=== PATIENT | female | born 1975 | race Caucasian/White ===

== ENCOUNTER 2016-11-26 16:34 | Emergency (ER) | payer MEDICAID ==
[~2016-11-26] VITALS: Ht 182.9 cm; Wt 93.0 kg
[~2016-11-26 16:34] MED LIST: GEOD80CA PO; IBUP-232 PO; NIAC500T5 PO; TRIH5TAB2 PO
[2016-11-26 16:46] VITALS: BP 133/83; PULSE 91; RESP 16; TEMP 98.1; O2SAT 99
[2016-11-26] MEDS ORDERED: ZIPR20 PO (17:00)
[2016-11-26] MEDS ORDERED: TRIH5TAB2 PO (17:00)
[2016-11-26] MEDS ORDERED: BUPR150T3 PO (17:00)
--- NOTE | 2016-11-26 17:30 | PD ---
HPI Chief Complaint: Musculoskeletal Complaint Time Seen by Provider: 17:29 Travel History International Travel<30 days: No Contact w/Intl Traveler<30days: No Traveled to known affect area: No History of Present Illness HPI 41-year-old right-hand dominant female presents to the ED for evaluation of 9/ 10 left shoulder pain. Onset this morning after she sat up in bed and reached for the alarm clock. She describes the pain as sharp, worsened by attempted range of motion. States she was able to go to work today and perform her duties of typing and writing. She states that by the end of the day she was in "terrible" pain. She denies numbness, tingling, muscular weakness of the extremity. She denies previous injury or known recent trauma. She treated with ibuprofen with no improvement of symptoms. PFSH Past Medical History Bipolar Disorder: Yes Anxiety: Yes Depression: Yes Cardiovascular Problems: No Diminished Hearing: No Endocrine: No Gastrointestinal Disorders: Yes GERD: Yes Genitourinary: Yes (urinary frequency since ) Immune Disorder: No Musculoskeletal: Yes (scoliosis) Neurologic: Yes (states has episodes where she has tunnel vision) Psychiatric: Yes Immunizations Current: Yes Pneumonia: Yes Tetanus Vaccination: > 5 Years Influenza Vaccination: No ?: Not : 3 Para: 2 Miscarriage: 1 Tubal Ligation: Yes Past Surgical History Section: Yes (2006 AND 2009) Gynecologic Surgery: Yes (ablation) Hysterectomy: Yes Oral Surgery: Yes (wisdom teeth-RIGHT UPPER AND LOWER 1989) Other Surgery: Yes Social History Alcohol Use: No Tobacco Use: Yes (1 PPD) Substance Use: No (H/O cocaine abuse) Allergies-Medications (Allergen,Severity, Reaction): Coded Allergies: Alcohol (Verified Allergy, Severe, HIVES, ITCHING, 11/26/16) Amoxicillin (Verified Allergy, Severe, Hives, 11/26/16) Penicillin (Verified Allergy, Severe, RASH, 11/26/16) Uncoded Allergies: Pt states allergic to all cillan drugs (Adverse Reaction, Intermediate, RASH, ITCHING, 11/26/16) . Reported Meds & Prescriptions Reported Meds & Active Scripts Active Robaxin (Methocarbamol) 500 Mg Tab 1,000 Mg PO TID Lortab (Hydrocodone-Acetaminophen) 5-325 Mg Tab 1 Tab PO Q6H PRN Ibuprofen 800 Mg Tab 800 Mg PO Q8H PRN Reported Bupropion HCl ER 24 HR (Bupropion HCl) 150 Mg Tab 150 Mg PO DAILY Trihexyphenidyl (Trihexyphenidyl HCl) 5 Mg Tab 5 Mg PO HS Geodon (Ziprasidone) 20 Mg Cap 20 Mg PO HS Review of Systems Except as stated in HPI: all other systems reviewed are Neg Physical Exam Narrative GENERAL: Well-nourished, well-developed nontoxic appearing white female in no acute distress.. SKIN: Focused skin assessment warm/dry. HEAD: Normocephalic. EYES: No scleral icterus. No injection or drainage. NECK: Supple, trachea midline. No JVD or lymphadenopathy. CARDIOVASCULAR: Regular rate and rhythm without murmurs, gallops, or rubs. RESPIRATORY: Breath sounds equal bilaterally. No accessory muscle use. GASTROINTESTINAL: Abdomen soft, non-tender, nondistended. MUSCULOSKELETAL: No cyanosis, or edema. FOCUSED LEFT UPPER EXTREMITY EXAM: 2+ radial pulse. No ecchymosis or edema noted. Tender to palpation of the humeral head. Patient retains full, active, painless range of motion of the elbow and wrist. Extension, abduction and overhead extension of the shoulder elicits pain. 5/5 muscle strength in the entire arm. Neurovascularly intact. BACK: Nontender without obvious deformity. No CVA tenderness. Data Data Last Documented VS Vital Signs Date Time Temp Pulse Resp B/P Pulse Ox O2 Delivery O2 Flow Rate FiO2 11/26/16 16:46 98.1 91 16 133/83 99 Orders Shoulder, Complete (>2vws) (11/26/16 17:07) Ice/Cold Pack (11/26/16 17:07) MDM Medical Decision Making Medical Screen Exam Complete: Yes Emergency Medical Condition: Yes Differential Diagnosis Rotator cuff injury versus impingement syndrome versus shoulder separation versus bony injury versus other Narrative Course 41-year-old right-hand dominant female presents to the ED for evaluation of 9/ 10 left shoulder pain. Onset this morning after she sat up in bed and reached for the alarm clock. She describes the pain as sharp, worsened by attempted range of motion. States she was able to go to work today and perform her duties of typing and writing. She states that by the end of the day she was in terrible pain. She denies numbness, tingling, muscular weakness of the extremity. She denies previous injury or known recent trauma. Vitals reviewed. Physical exam reveals a pleasant white female in no acute distress. 2 + radial pulse. No ecchymosis or edema noted. Tender to palpation of the humeral head. Patient retains full, active, painless range of motion of the elbow and wrist. Extension, abduction and overhead extension of the shoulder elicits pain. 5/5 muscle strength in the entire arm. Neurovascularly intact. Review of the x-ray reveals osteochondromata in the shoulder joint. Patient was prescribed this short course of anti-inflammatories, muscle relaxants and narcotic pain medications. She was instructed to follow-up with the on-call orthopedist, Dr. Monk, tomorrow. She is instructed to return to normal, gentle activity as tolerated. She indicated understanding of the instructions and is agreeable to the care plan. The patient is stable and discharged home. Diagnosis Primary Impression: Loose body in left shoulder Additional Impression: Left shoulder pain Qualified Code: M25.512 - Acute pain of left shoulder Referrals: Jose Monk MD Patient Instructions: General Instructions, Shoulder Pain (ED) Additional Instructions: Rest, ice the extremity. Apply ice no longer than 10-15 minutes per hour a few times a day. 800 mg ibuprofen up to 3 times a day to reduce pain and inflammation. Tramadol up to 3 times a day for pain greater than 6. Robaxin up to 3 times a day as needed for muscle spasm. Do not drive when taking tramadol or Robaxin. Return to normal, gentle activity as tolerated. Follow-up with the orthopedist tomorrow. Return to the ED for any urgent or emergent medical condition. Med/Other Pt SpecificInfo: Prescription(s) given Scripts Methocarbamol (Robaxin)500 Mg Tab1,000 Mg PO TID #15 TAB Ref 0 Prov:Corby Olsen MD 11/26/16 Hydrocodone-Acetaminophen (Lortab)5-325 Mg Tab1 Tab PO Q6H PRN (PAIN) #15 TAB Ref 0 Prov:Corby Olsen MD 11/26/16 Ibuprofen 800 Mg [id number] Mg PO Q8H PRN (Pain/Inflammation) #20 TAB Ref 0 Prov:Corby Olsen MD 11/26/16 Disposition: 01 DISCHARGE HOME Condition: Stable Jazmin Beltrán Nov 26, 2016 17:29
--- NOTE | 2016-11-26 17:37 | RADHPO ---
EXAM DATE/TIME: 11/26/2016 17:13 [facility] COMPARISON: No previous studies available for comparison. INDICATIONS : Left shoulder pain after extending arm. MEDICAL HISTORY : None. SURGICAL HISTORY : None. ENCOUNTER: Initial ACUITY: 1 day PAIN SCORE: 10/10 LOCATION: Left proximal shoulder FINDINGS: Multiple view examination of the left shoulder demonstrates no evidence of fracture or dislocation. Small, well-circumscribed calcific densities are seen in the region of the acromiohumeral interval an d may represent small osteochondromata. The glenohumeral and acromioclavicular joints are maintained. There is normal range of motion between internal and external rotation. Bony mineralization is nor mal. CONCLUSION: 1. Possible small osteochondromata in the regional of the left shoulder joint. 2. Otherwise negative. No acute fracture. Dominick Calderon MD on November 26, 2016 at 17:34 Board Certified Radiologist. This report was verified electronically.
[2016-11-26] MEDS ORDERED: ROBA500T PO (17:53)
[2016-11-26] MEDS ORDERED: IBUP800T23 PO (17:53)
[2016-11-26] MEDS ORDERED: HYDR-3533 PO (17:53)
== END 2016-11-26 18:00 | disposition home or self-care (01) ==
LOC: PHEFT 16:34
DX: M24.012 Loose body in left shoulder (principal); M25.512 Pain in left shoulder; M41.9 Scoliosis, unspecified; F17.210 Nicotine dependence, cigarettes, uncomplicated
CPT/HCPCS: 73030; 99283

== ENCOUNTER 2016-11-30 12:56 | Emergency (ER) | payer MEDICAID ==
[~2016-11-30] VITALS: Ht 182.9 cm; Wt 92.5 kg
[~2016-11-30 12:56] MED LIST changes: +BUPR150T3 PO; -GEOD80CA PO; +HYDR-3533 PO; -IBUP-232 PO; +IBUP800T23 PO; -NIAC500T5 PO; +ROBA500T PO; +ZIPR20 PO
[2016-11-30 13:06] VITALS: BP 116/79; PULSE 98; RESP 16; TEMP 98.1; O2SAT 98
--- NOTE | 2016-11-30 13:15 | PD ---
HPI . left shoulder pain Chief Complaint: Pain: Acute or Chronic Time Seen by Provider: 13:15 Travel History International Travel<30 days: No Contact w/Intl Traveler<30days: No Traveled to known affect area: No History of Present Illness HPI 41-year-old female here with complaints of left shoulder pain. Patient was previously seen at [place] emergency department and told that she has a bone fragment in her left shoulder. She was also told that she may have a rotator cuff injury and was advised to follow-up with orthopedics on the following day. Unfortunately there are some issues with her insurance and she is in the process of waiting for referral. She decided to come to the emergency department because she is running low on her muscle relaxers and pain medications and wanting refills. She tells me the muscle relaxers help the most. She denies any new injury. She has no other complaints. She already has the referral pending and should have issued by the next week. PFSH Past Medical History Bipolar Disorder: Yes Anxiety: Yes Depression: Yes Cardiovascular Problems: No Diminished Hearing: No Endocrine: No Gastrointestinal Disorders: Yes GERD: Yes Genitourinary: Yes (urinary frequency since ) Immune Disorder: No Musculoskeletal: Yes (scoliosis) Neurologic: Yes (states has episodes where she has tunnel vision) Psychiatric: Yes Immunizations Current: Yes Pneumonia: Yes ?: Not : 3 Para: 2 Miscarriage: 1 Tubal Ligation: Yes Past Surgical History Section: Yes (2006 AND 2009) Gynecologic Surgery: Yes (ablation) Hysterectomy: Yes Oral Surgery: Yes (wisdom teeth-RIGHT UPPER AND LOWER 1989) Other Surgery: Yes Social History Alcohol Use: No Tobacco Use: Yes (1 PPD) Substance Use: No (H/O cocaine abuse) Allergies-Medications (Allergen,Severity, Reaction): Coded Allergies: Alcohol (Verified Allergy, Severe, HIVES, ITCHING, 11/30/16) Amoxicillin (Verified Allergy, Severe, Hives, 11/30/16) Penicillin (Verified Allergy, Severe, RASH, 11/30/16) Uncoded Allergies: Pt states allergic to all cillan drugs (Adverse Reaction, Intermediate, RASH, ITCHING, 11/26/16) . Reported Meds & Prescriptions Reported Meds & Active Scripts Active Robaxin (Methocarbamol) 500 Mg Tab 1,000 Mg PO TID Ibuprofen 800 Mg Tab 800 Mg PO Q8H PRN Lortab (Hydrocodone-Acetaminophen) 5-325 Mg Tab 1 Tab PO Q6H PRN Reported Bupropion HCl ER 24 HR (Bupropion HCl) 150 Mg Tab 150 Mg PO DAILY Trihexyphenidyl (Trihexyphenidyl HCl) 5 Mg Tab 5 Mg PO HS Geodon (Ziprasidone) 20 Mg Cap 160 Mg PO HS Review of Systems General / Constitutional: No: Fever Eyes: No: Visual changes HENT: No: Headaches Cardiovascular: No: Chest Pain or Discomfort Respiratory: No: Shortness of Breath Gastrointestinal: No: Abdominal Pain Genitourinary: No: Dysuria Musculoskeletal: Positive: Pain (left shoulder) Skin: No Rash Neurologic: No: Weakness Psychiatric: No: Depression Endocrine: No: Polydipsia Hematologic/Lymphatic: No: Easy Bruising Physical Exam Narrative GENERAL: AAO x 3, no acute distress, Well-nourished, well-developed patient. very comfortable. SKIN: Warm and dry. No visible rashes or bruising. HEAD: Normocephalic and atraumatic. EYES: No scleral icterus. No injection or drainage. ENT: No nasal drainage noted. . Airway patent. NECK: Supple, trachea midline. No JVD. CARDIOVASCULAR: Regular rate and rhythm without murmurs, gallops, or rubs. RESPIRATORY: Breath sounds equal bilaterally. No accessory muscle use. No rhonchi or rales. GASTROINTESTINAL: Abdomen soft, non-tender, nondistended. EXTREMITIES: No cyanosis or edema. decreased ROM in left shoulder. + pain with internal rotation. decreased strength and ability to abduct left arm.Right arm normal. reports pain but appears comfortable. BACK: Nontender without obvious deformity. No CVA tenderness. PSYCH: AAO x 3, normal affect. Data Data Last Documented VS Vital Signs Date Time Temp Pulse Resp B/P Pulse Ox O2 Delivery O2 Flow Rate FiO2 11/30/16 13:06 98.1 98 16 116/79 98 MDM Medical Decision Making Medical Screen Exam Complete: Yes Emergency Medical Condition: Yes Medical Record Reviewed: Yes Differential Diagnosis shoulder pain, rotator cuff injury, less likely dislocation Narrative Course 41-year-old female here with complaints of left shoulder pain. Patient was previously seen at [place] emergency department and told that she has a bone fragment in her left shoulder. She was also told that she may have a rotator cuff injury and was advised to follow-up with orthopedics on the following day. Unfortunately there are some issues with her insurance and she is in the process of waiting for referral. She decided to come to the emergency department because she is running low on her muscle relaxers and pain medications and wanting refills. She tells me the muscle relaxers help the most. She denies any new injury. She has no other complaints. She already has the referral pending and should have issued by the next week. Patient seen and examined. She appears to have a possible left rotator cuff injury. I do not suspect any new bony abnormality. She is essentially here for refill on her medications. I have provided those to her. I explained that since she is benefiting from the muscle relaxer we will go ahead and refill that. I also provided additional ibuprofen to help reduce inflammation. Patient was in agreement with treatment plan. She will seek out consultation from orthopedics next week. Patient verbalized understanding of instructions, questions were answered, and thanked me for their care. I advised them if their condition worsens, please return to the nearest emergency room for further care. Diagnosis Primary Impression: Left shoulder pain Qualified Code: M25.512 - Acute pain of left shoulder Additional Impression: Injury of left rotator cuff Qualified Code: S46.002A - Injury of left rotator cuff, initial encounter Patient Instructions: General Instructions Additional Instructions: Please return to emergency department if your symptoms return or worsen. Follow up with your primary care provider. Take medications as prescribed. You can try topical muscle rub such as BenGay to the area of your shoulder. Please seen orthopedist as soon as possible. Med/Other Pt SpecificInfo: Prescription(s) given Scripts Methocarbamol (Robaxin)500 Mg Tab1,000 Mg PO TID #15 TAB Ref 0 Prov:Corby Olsen MD 11/30/16 Ibuprofen 800 Mg [id number] Mg PO Q8H PRN (Pain/Inflammation) #15 TAB Ref 0 Prov:Corby Olsen MD 11/30/16 Disposition: 01 DISCHARGE HOME Condition: Stable Nyla Coronel Nov 30, 2016 13:15
[2016-11-30] MEDS ORDERED: IBUP800T23 PO (13:21)
[2016-11-30] MEDS ORDERED: ROBA500T PO (13:21)
== END 2016-11-30 13:35 | disposition home or self-care (01) ==
LOC: NEPK 12:56
DX: M25.512 Pain in left shoulder (principal); K21.9 Gastro-esophageal reflux disease without esophagitis; F17.200 Nicotine dependence, unspecified, uncomplicated
CPT/HCPCS: 99283